=== PATIENT | female | born 1930 | race Caucasian/White ===

== ENCOUNTER 2016-09-27 12:16 | Inpatient (IN) | payer MEDICARE, OTHER ==
[~2016-09-27 12:16] MED LIST: ADVAIR 25028 BLISTE1 INH; ALBUTEROL17 GM INH; AMOXICILLIN875 MG PO; ANTIVERT25 MG PO; ASPIRIN EC81 MG PO; ASPIRIN81 MG PO; AUGMENTIN 875-1 EAC2 PO; AVELOX400 MG; BABY ASPIRIN81 MG; CARBIDOPA-LE1 TAB.SA; CARBIDOPA-LEVO E1 EA PO; CARBIDOPA-LEVO1 EAC9 PO; CARVEDILOL25 M1 PO; CLARITIN10 M8 PO; COLACE100 M1 PO; COREG12.5 MG; COREG25 MG PO; CPAP; CYANOCOBAL1000 MCG/3 SC; DOC-Q-LACE100 M1 PO; FAMOTIDINE40 M3 PO; IPRAT-ALBUT 0.5-3 ML EZPAP; IRON325 M1 PO; ISOSORBIDE MONO30 M4 PO; K-DUR10 MEQ PO; K-DUR20 MEQ PO; KEFLEX500 MG PO; LASIX20 M1 PO; LASIX20 MG PO; LEVAQUIN250 MG PO; LIPITOR40 M1 PO; LIPITOR80 M1 PO; LIPITOR80 MG; LIPITOR80 MG PO; LISINOPRIL10 M1 PO; LISINOPRIL10 MG; LISINOPRIL10 MG PO; LOVENOX30 MG/0.1 SC; MEDROL4 M2; MIRALAX17 G2 PO; MIRAPEX0.25 M1 PO; MUCINEX600 M1 PO; NITROSTAT0.4 MG/TAB SL; NITROTAB0.4 MG SL; NORCO 5-325 TA1 EACH PO; NORVASC10 M2 PO; PEPCID40 MG; PEPCID40 MG PO; POTASSIUM CHLO10 ME2 PO; PRAMIPEXOLE D0.25 M1 PO; PREDNISONE1 MG PO; PREDNISONE10 M1; PREDNISONE20 MG; PROVENTIL HFA6.7 G1 INH; RANEXA500 M1 PO; RANEXA500 MG PO; RESCUE INHALER INH; TRAZODONE HCL50 M1 PO; TRAZODONE50 MG; TRAZODONE50 MG PO; TUDORZA PRESS400 MC1 INH; TYLENOL325 M2 PO; ULTRACET TABLET1 TAB PO; VESICARE5 M1 PO; VITAMIN B SC; XOPENEX HFA15 G1 INH; XOPENEX HFA15 GM; ZITHROMAX TRI-500 M1; ZITHROMAX250 MG PO; ZOFRAN ODT4 MG/UDTAB PO; ZOFRAN4 M2 PO; ZOLOFT50 M1 PO; ZOLOFT50 MG; ZOLOFT50 MG PO; [UNRECOGNIZED DRUG - REMARK]
[2016-09-27 12:18] LABS: URINE APPEARANCE CLEAR; URINE BILIRUBIN NEGATIVE (NEG); URINE BLOOD NEGATIVE (NEG); URINE COLOR YELLOW; URINE GLUCOSE (UA) NEGATIVE (NEG); URINE KETONE SMALL (NEG); URINE LEUKOCYTE ESTERASE POSITIVE (NEG); URINE NITRITE NEGATIVE (NEG); URINE PROTEIN MODERATE (NEG); URINE SPECIFIC GRAVITY 1.015 (1.003-1.030)
[2016-09-27 12:29] LABS: URINE EPITHELIAL CELLS 0-2 /[HPF] (0-10); URINE MUCUS 1+; URINE RBC 0 /[HPF] (0-5)
[2016-09-27 12:33] LABS: EOS % 2.4 % (0-7); EOSINOPHIL ABSOLUTE COUNT 0.1 tho/cmm (0.0-0.7); HCT-HEMATOCRIT 37.3 % (34.0-49.0); HGB-HEMOGLOBIN 11.3 gm/dl (12.0-15.5); LYMPH % 20.3 % (20-45); LYMPH ABSOLUTE COUNT 1.2 tho/cmm (0.8-4.5); MCH (MEAN CORPUSCULAR HGB) 27.7 pg (28.0-32.0); MCHC MEAN CORPUSCULAR HGB CONC 30.3 % (32.0-36.0); MCV (MEAN CELL VOLUME) 91.4 fl (82.0-96.0); MEAN PLATELET VOLUME 11.5 cmc (9.4-12.4); MONO % 7.1 % (0-12); MONOCYTE ABSOLUTE COUNT 0.4 tho/cmm (0.0-1.2); NEUTROPHIL ABSOLUTE COUNT 4.1 tho/cmm (1.6-8.0); NEUTROPHIL-AUTOMATED 4.1 tho/cmm (1.6-8.0); NEUTROPHILS % 70.2 % (40-80); PLATELET COUNT 183 tho/cmm (150-450); RED BLOOD COUNT 4.08 mil/cmm (4.00-5.20); WHITE BLOOD COUNT 5.8 tho/cmm (4.0-10.0)
[2016-09-27 12:42] LABS: ALB/GLOB RATIO 0.8 (0.8-2.0); ALBUMIN 3.6 g/dl (3.5-5.0); ALKALINE PHOSPHATASE 140 U/L (33-138); ANION GAP 12 mmol/L (0-20); AST/SGOT 14 U/L (10-40); BILIRUBIN,TOTAL 0.4 mg/dl (0-1.5); BLOOD UREA NITROGEN 22 mg/dl (6-24); CALCIUM 9.2 mg/dl (8.5-10.5); CARBON DIOXIDE-VENOUS 26 mmol/L (22-32); CHLORIDE 108 mmol/l (96-110); CREATININE 1.58 mg/dl (0.50-1.10); GLUCOSE 98 mg/dL (70-110); LIPASE 243 U/L (73-393); POTASSIUM 4.8 mmol/L (3.7-5.1); SODIUM 141 mmol/L (135-145); eGFR VALUE FOR BLACK 34 mL/Min
[2016-09-27 12:46] LABS: ALT/SGPT <10 U/L (12-78)
[2016-09-28 06:32] LABS: EOS % 0.3 % (0-7); HCT-HEMATOCRIT 32.1 % (34.0-49.0); HGB-HEMOGLOBIN 9.6 gm/dl (12.0-15.5); IMMATURE GRANULOCYTES ABSOLUTE 0.01 tho/cmm (0-0.03); IMMATURE GRANULOCYTES PERCENT 0.3 % (0-0.3); LYMPH % 16.9 % (20-45); LYMPH ABSOLUTE COUNT 0.6 tho/cmm (0.8-4.5); MCH (MEAN CORPUSCULAR HGB) 27.4 pg (28.0-32.0); MCHC MEAN CORPUSCULAR HGB CONC 29.9 % (32.0-36.0); MCV (MEAN CELL VOLUME) 91.7 fl (82.0-96.0); MONO % 1.1 % (0-12); NEUTROPHIL ABSOLUTE COUNT 3.1 tho/cmm (1.6-8.0); NEUTROPHIL-AUTOMATED 3.1 tho/cmm (1.6-8.0); NEUTROPHILS % 81.4 % (40-80); PLATELET COUNT 146 tho/cmm (150-450); RED CELL DISTRIBUTION WIDTH 15.2 % (12.4-16.4); WHITE BLOOD COUNT 3.8 tho/cmm (4.0-10.0)
[2016-09-28 06:59] LABS: ANION GAP 11 mmol/L (0-20); BLOOD UREA NITROGEN 23 mg/dl (6-24); CALCIUM 8.7 mg/dl (8.5-10.5); CARBON DIOXIDE-VENOUS 27 mmol/L (22-32); CHLORIDE 110 mmol/l (96-110); CREATININE 1.54 mg/dl (0.50-1.10); POTASSIUM 5.3 mmol/L (3.7-5.1); SODIUM 143 mmol/L (135-145); eGFR VALUE FOR BLACK 36 mL/Min
[2016-09-28 07:12] LABS: GLUCOSE 164 mg/dL (70-110)
[2016-09-29 06:28] LABS: ANION GAP 13 mmol/L (0-20); BLOOD UREA NITROGEN 34 mg/dl (6-24); CALCIUM 8.3 mg/dl (8.5-10.5); CARBON DIOXIDE-VENOUS 25 mmol/L (22-32); CHLORIDE 109 mmol/l (96-110); CREATININE 1.63 mg/dl (0.50-1.10); GLUCOSE 97 mg/dL (70-110); POTASSIUM 5.1 mmol/L (3.7-5.1); SODIUM 142 mmol/L (135-145); eGFR VALUE FOR BLACK 33 mL/Min
[2016-09-29 06:34] LABS: HCT-HEMATOCRIT 27.6 % (34.0-49.0); HGB-HEMOGLOBIN 8.5 gm/dl (12.0-15.5); IMMATURE GRANULOCYTES ABSOLUTE 0.03 tho/cmm (0-0.03); IMMATURE GRANULOCYTES PERCENT 0.5 % (0-0.3); LYMPH ABSOLUTE COUNT 1.1 tho/cmm (0.8-4.5); MCH (MEAN CORPUSCULAR HGB) 27.8 pg (28.0-32.0); MCHC MEAN CORPUSCULAR HGB CONC 30.8 % (32.0-36.0); MCV (MEAN CELL VOLUME) 90.2 fl (82.0-96.0); MEAN PLATELET VOLUME 10.9 cmc (9.4-12.4); MONO % 6.7 % (0-12); MONOCYTE ABSOLUTE COUNT 0.4 tho/cmm (0.0-1.2); NEUTROPHIL ABSOLUTE COUNT 4.2 tho/cmm (1.6-8.0); NEUTROPHIL-AUTOMATED 4.2 tho/cmm (1.6-8.0); NEUTROPHILS % 73.8 % (40-80); PLATELET COUNT 148 tho/cmm (150-450); RED BLOOD COUNT 3.06 mil/cmm (4.00-5.20); RED CELL DISTRIBUTION WIDTH 15.2 % (12.4-16.4); WHITE BLOOD COUNT 5.7 tho/cmm (4.0-10.0)
[2016-09-30 06:11] LABS: EOS % 0.2 % (0-7); HCT-HEMATOCRIT 28.4 % (34.0-49.0); HGB-HEMOGLOBIN 8.7 gm/dl (12.0-15.5); IMMATURE GRANULOCYTES ABSOLUTE 0.05 tho/cmm (0-0.03); IMMATURE GRANULOCYTES PERCENT 0.9 % (0-0.3); LYMPH % 25.1 % (20-45); LYMPH ABSOLUTE COUNT 1.4 tho/cmm (0.8-4.5); MCH (MEAN CORPUSCULAR HGB) 27.9 pg (28.0-32.0); MCHC MEAN CORPUSCULAR HGB CONC 30.6 % (32.0-36.0); MONO % 7.9 % (0-12); MONOCYTE ABSOLUTE COUNT 0.4 tho/cmm (0.0-1.2); NEUTROPHIL ABSOLUTE COUNT 3.7 tho/cmm (1.6-8.0); NEUTROPHIL-AUTOMATED 3.7 tho/cmm (1.6-8.0); NEUTROPHILS % 65.9 % (40-80); PLATELET COUNT 163 tho/cmm (150-450); RED BLOOD COUNT 3.12 mil/cmm (4.00-5.20); RED CELL DISTRIBUTION WIDTH 15.7 % (12.4-16.4); WHITE BLOOD COUNT 5.5 tho/cmm (4.0-10.0)
[2016-09-30 06:48] LABS: ANION GAP 13 mmol/L (0-20); BLOOD UREA NITROGEN 25 mg/dl (6-24); CALCIUM 8.1 mg/dl (8.5-10.5); CARBON DIOXIDE-VENOUS 26 mmol/L (22-32); CHLORIDE 110 mmol/l (96-110); CREATININE 1.41 mg/dl (0.50-1.10); GLUCOSE 80 mg/dL (70-110); POTASSIUM 4.6 mmol/L (3.7-5.1); SODIUM 144 mmol/L (135-145); eGFR VALUE FOR BLACK 40 mL/Min
[2016-10-01] MEDS ORDERED: FEOSOL325 M1 PO (11:40)
[2016-10-01] MEDS ORDERED: ZOLOFT50 M1 PO (11:41)
[2016-10-01] MEDS ORDERED: PROTONIX40 M2 PO (11:42)
[2017-02-12] MEDS ORDERED: PEPCID40 M1 PO (14:53)
[2017-02-12] MEDS ORDERED: BACITRACIN28.4 G2 TP (15:07)
[2017-02-18] MEDS ORDERED: KEFLEX500 M4 PO (09:19)
[2017-02-18] MEDS ORDERED: TYLENOL325 M2 PO (09:28)
[2017-02-18] MEDS ORDERED: MILK OF MAGNESIA PO (09:29)
== END 2016-10-01 12:35 | disposition home health service (06) | DRG 392 ==
LOC: EDMED 12:16 → EMR2 14:20 → 5WF 16:20
PROVIDERS: Emergency Medicine; ADMIT Family Medicine
PROC: 0DJ08ZZ Inspection of Upper Intestinal Tract, Via Natural or Artificial Opening Endoscopic (ICD-10-PCS; principal; 2016-09-29)
DX: K44.9 Diaphragmatic hernia without obstruction or gangrene (principal); D61.818 Other pancytopenia; E87.5 Hyperkalemia; G20 Parkinson's disease; N18.3 Chronic kidney disease, stage 3 (moderate); J44.9 Chronic obstructive pulmonary disease, unspecified; G47.33 Obstructive sleep apnea (adult) (pediatric); K22.4 Dyskinesia of esophagus; F32.9 Major depressive disorder, single episode, unspecified; G31.84 Mild cognitive impairment of uncertain or unknown etiology; D63.1 Anemia in chronic kidney disease; I95.1 Orthostatic hypotension; I25.10 Atherosclerotic heart disease of native coronary artery without angina pectoris; I25.2 Old myocardial infarction; M19.90 Unspecified osteoarthritis, unspecified site; F41.9 Anxiety disorder, unspecified; K21.9 Gastro-esophageal reflux disease without esophagitis; N20.0 Calculus of kidney; Z85.828 Personal history of other malignant neoplasm of skin; Z95.1 Presence of aortocoronary bypass graft
CPT/HCPCS: A9541; C1751; G8987-GO-CJ; G8988-GO-CI; J1650; J2405; J7030; J7512

== ENCOUNTER 2016-12-24 21:51 | Inpatient (IN) | payer MEDICARE, OTHER ==
[~2016-12-24 21:51] MED LIST changes: +FEOSOL325 M1 PO; +PROTONIX40 M2 PO
[2016-12-24] MEDS ORDERED: PRINIVIL10 M1 PO (22:35)
[2016-12-24] MEDS ORDERED: TRAZODONE HCL50 M1 PO (22:36)
[2016-12-24 23:29] LABS: BASO % 0.2 % (0-2); EOS % 1.5 % (0-7); EOSINOPHIL ABSOLUTE COUNT 0.1 tho/cmm (0.0-0.7); HCT-HEMATOCRIT 30.2 % (34.0-49.0); HGB-HEMOGLOBIN 9.1 gm/dl (12.0-15.5); IMMATURE GRANULOCYTES ABSOLUTE 0.02 tho/cmm (0-0.03); IMMATURE GRANULOCYTES PERCENT 0.4 % (0-0.3); LYMPH % 19.9 % (20-45); LYMPH ABSOLUTE COUNT 1.1 tho/cmm (0.8-4.5); MCH (MEAN CORPUSCULAR HGB) 26.1 pg (28.0-32.0); MCHC MEAN CORPUSCULAR HGB CONC 30.1 % (32.0-36.0); MCV (MEAN CELL VOLUME) 86.8 fl (82.0-96.0); MEAN PLATELET VOLUME 9.9 cmc (9.4-12.4); MONO % 7.2 % (0-12); MONOCYTE ABSOLUTE COUNT 0.4 tho/cmm (0.0-1.2); NEUTROPHIL ABSOLUTE COUNT 3.9 tho/cmm (1.6-8.0); NEUTROPHIL-AUTOMATED 3.9 tho/cmm (1.6-8.0); NEUTROPHILS % 70.8 % (40-80); PLATELET COUNT 153 tho/cmm (150-450); RED BLOOD COUNT 3.48 mil/cmm (4.00-5.20); RED CELL DISTRIBUTION WIDTH 15.7 % (12.4-16.4); WHITE BLOOD COUNT 5.4 tho/cmm (4.0-10.0)
[2016-12-24 23:45] LABS: ALB/GLOB RATIO 0.8 (0.8-2.0); ALKALINE PHOSPHATASE 152 U/L (33-138); ALT/SGPT 16 U/L (12-78); ANION GAP 12 mmol/L (0-20); AST/SGOT 14 U/L (10-40); BILIRUBIN,TOTAL 0.4 mg/dl (0-1.5); BLOOD UREA NITROGEN 36 mg/dl (6-24); CALCIUM 8.3 mg/dl (8.5-10.5); CARBON DIOXIDE-VENOUS 29 mmol/L (22-32); CHLORIDE 107 mmol/l (96-110); CREATININE 1.94 mg/dl (0.50-1.10); GLUCOSE 114 mg/dL (70-110); POTASSIUM 4.6 mmol/L (3.7-5.1); SODIUM 143 mmol/L (135-145); eGFR VALUE FOR BLACK 27 mL/Min
[2016-12-24 23:53] LABS: URINE BILIRUBIN NEGATIVE (NEG); URINE BLOOD NEGATIVE (NEG); URINE GLUCOSE (UA) NEGATIVE (NEG); URINE KETONE NEGATIVE (NEG); URINE LEUKOCYTE ESTERASE NEGATIVE (NEG); URINE NITRITE NEGATIVE (NEG); URINE PROTEIN SMALL (NEG); URINE SPECIFIC GRAVITY 1.015 (1.003-1.030)
[2016-12-24 23:54] LABS: URINE APPEARANCE CLEAR; URINE COLOR YELLOW
[2016-12-24 23:56] LABS: URINE EPITHELIAL CELLS 0-1 /[HPF] (0-10); URINE MUCUS 2+; URINE RBC 0 /[HPF] (0-5); URINE WBC 0-2 /[HPF] (0-5)
[2016-12-25 06:08] LABS: ANION GAP 11 mmol/L (0-20); BLOOD UREA NITROGEN 37 mg/dl (6-24); CALCIUM 8.8 mg/dl (8.5-10.5); CARBON DIOXIDE-VENOUS 32 mmol/L (22-32); CHLORIDE 108 mmol/l (96-110); CREATININE 1.75 mg/dl (0.50-1.10); GLUCOSE 100 mg/dL (70-110); POTASSIUM 4.3 mmol/L (3.7-5.1); SODIUM 147 mmol/L (135-145); eGFR VALUE FOR BLACK 30 mL/Min
[2016-12-26 05:52] LABS: EOS % 1.7 % (0-7); EOSINOPHIL ABSOLUTE COUNT 0.1 tho/cmm (0.0-0.7); HCT-HEMATOCRIT 30.5 % (34.0-49.0); HGB-HEMOGLOBIN 9.2 gm/dl (12.0-15.5); IMMATURE GRANULOCYTES ABSOLUTE 0.02 tho/cmm (0-0.03); IMMATURE GRANULOCYTES PERCENT 0.4 % (0-0.3); LYMPH % 26.1 % (20-45); LYMPH ABSOLUTE COUNT 1.2 tho/cmm (0.8-4.5); MCH (MEAN CORPUSCULAR HGB) 25.9 pg (28.0-32.0); MCHC MEAN CORPUSCULAR HGB CONC 30.2 % (32.0-36.0); MCV (MEAN CELL VOLUME) 85.9 fl (82.0-96.0); MEAN PLATELET VOLUME 10.8 cmc (9.4-12.4); MONO % 5.8 % (0-12); MONOCYTE ABSOLUTE COUNT 0.3 tho/cmm (0.0-1.2); NEUTROPHIL ABSOLUTE COUNT 3.1 tho/cmm (1.6-8.0); NEUTROPHIL-AUTOMATED 3.1 tho/cmm (1.6-8.0); PLATELET COUNT 158 tho/cmm (150-450); RED BLOOD COUNT 3.55 mil/cmm (4.00-5.20); RED CELL DISTRIBUTION WIDTH 15.8 % (12.4-16.4); WHITE BLOOD COUNT 4.6 tho/cmm (4.0-10.0)
[2016-12-26 06:11] LABS: ANION GAP 9 mmol/L (0-20); BLOOD UREA NITROGEN 37 mg/dl (6-24); CALCIUM 8.3 mg/dl (8.5-10.5); CARBON DIOXIDE-VENOUS 33 mmol/L (22-32); CHLORIDE 103 mmol/l (96-110); CREATININE 1.71 mg/dl (0.50-1.10); GLUCOSE 87 mg/dL (70-110); MAGNESIUM 1.8 mg/dl (1.8-2.6); SODIUM 141 mmol/L (135-145); eGFR VALUE FOR BLACK 31 mL/Min
[2016-12-27 04:55] LABS: PLATELET COUNT 146 tho/cmm (150-450)
[2016-12-27 05:03] LABS: ANION GAP 10 mmol/L (0-20); BLOOD UREA NITROGEN 38 mg/dl (6-24); CARBON DIOXIDE-VENOUS 32 mmol/L (22-32); CHLORIDE 102 mmol/l (96-110); CREATININE 1.83 mg/dl (0.50-1.10); GLUCOSE 90 mg/dL (70-110); MAGNESIUM 1.8 mg/dl (1.8-2.6); POTASSIUM 3.9 mmol/L (3.7-5.1); SODIUM 140 mmol/L (135-145); eGFR VALUE FOR BLACK 29 mL/Min
[2016-12-28 05:42] LABS: EOS % 2.2 % (0-7); EOSINOPHIL ABSOLUTE COUNT 0.1 tho/cmm (0.0-0.7); HCT-HEMATOCRIT 30.3 % (34.0-49.0); HGB-HEMOGLOBIN 9.3 gm/dl (12.0-15.5); IMMATURE GRANULOCYTES ABSOLUTE 0.02 tho/cmm (0-0.03); IMMATURE GRANULOCYTES PERCENT 0.5 % (0-0.3); LYMPH % 27.8 % (20-45); LYMPH ABSOLUTE COUNT 1.2 tho/cmm (0.8-4.5); MCH (MEAN CORPUSCULAR HGB) 26.3 pg (28.0-32.0); MCHC MEAN CORPUSCULAR HGB CONC 30.7 % (32.0-36.0); MCV (MEAN CELL VOLUME) 85.6 fl (82.0-96.0); MEAN PLATELET VOLUME 9.8 cmc (9.4-12.4); MONOCYTE ABSOLUTE COUNT 0.3 tho/cmm (0.0-1.2); NEUTROPHIL ABSOLUTE COUNT 2.6 tho/cmm (1.6-8.0); NEUTROPHIL-AUTOMATED 2.6 tho/cmm (1.6-8.0); NEUTROPHILS % 62.5 % (40-80); PLATELET COUNT 152 tho/cmm (150-450); RED BLOOD COUNT 3.54 mil/cmm (4.00-5.20); RED CELL DISTRIBUTION WIDTH 15.5 % (12.4-16.4); WHITE BLOOD COUNT 4.1 tho/cmm (4.0-10.0)
[2016-12-28 05:59] LABS: ANION GAP 10 mmol/L (0-20); BLOOD UREA NITROGEN 41 mg/dl (6-24); CALCIUM 8.2 mg/dl (8.5-10.5); CARBON DIOXIDE-VENOUS 32 mmol/L (22-32); CHLORIDE 103 mmol/l (96-110); CREATININE 1.95 mg/dl (0.50-1.10); GLUCOSE 85 mg/dL (70-110); MAGNESIUM 1.8 mg/dl (1.8-2.6); POTASSIUM 3.9 mmol/L (3.7-5.1); SODIUM 141 mmol/L (135-145); eGFR VALUE FOR BLACK 27 mL/Min
[2016-12-29 06:18] LABS: BASO % 0.3 % (0-2); EOS % 2.3 % (0-7); EOSINOPHIL ABSOLUTE COUNT 0.1 tho/cmm (0.0-0.7); HCT-HEMATOCRIT 31.6 % (34.0-49.0); HGB-HEMOGLOBIN 9.5 gm/dl (12.0-15.5); IMMATURE GRANULOCYTES ABSOLUTE 0.01 tho/cmm (0-0.03); IMMATURE GRANULOCYTES PERCENT 0.3 % (0-0.3); LYMPH % 25.8 % (20-45); MCH (MEAN CORPUSCULAR HGB) 26.1 pg (28.0-32.0); MCHC MEAN CORPUSCULAR HGB CONC 30.1 % (32.0-36.0); MCV (MEAN CELL VOLUME) 86.8 fl (82.0-96.0); MEAN PLATELET VOLUME 10.3 cmc (9.4-12.4); MONO % 7.6 % (0-12); MONOCYTE ABSOLUTE COUNT 0.3 tho/cmm (0.0-1.2); NEUTROPHIL ABSOLUTE COUNT 2.5 tho/cmm (1.6-8.0); NEUTROPHIL-AUTOMATED 2.5 tho/cmm (1.6-8.0); NEUTROPHILS % 63.7 % (40-80); PLATELET COUNT 154 tho/cmm (150-450); RED BLOOD COUNT 3.64 mil/cmm (4.00-5.20); RED CELL DISTRIBUTION WIDTH 15.8 % (12.4-16.4)
[2016-12-29 06:29] LABS: ANION GAP 9 mmol/L (0-20); BLOOD UREA NITROGEN 39 mg/dl (6-24); CALCIUM 8.8 mg/dl (8.5-10.5); CARBON DIOXIDE-VENOUS 34 mmol/L (22-32); CHLORIDE 103 mmol/l (96-110); CREATININE 1.76 mg/dl (0.50-1.10); GLUCOSE 86 mg/dL (70-110); POTASSIUM 4.4 mmol/L (3.7-5.1); SODIUM 142 mmol/L (135-145); eGFR VALUE FOR BLACK 30 mL/Min
[2016-12-30 05:02] LABS: ANION GAP 9 mmol/L (0-20); BLOOD UREA NITROGEN 39 mg/dl (6-24); CALCIUM 8.6 mg/dl (8.5-10.5); CARBON DIOXIDE-VENOUS 32 mmol/L (22-32); CHLORIDE 102 mmol/l (96-110); CREATININE 1.75 mg/dl (0.50-1.10); GLUCOSE 102 mg/dL (70-110); POTASSIUM 4.4 mmol/L (3.7-5.1); SODIUM 139 mmol/L (135-145); eGFR VALUE FOR BLACK 30 mL/Min
[2016-12-30] MEDS ORDERED: LIDODERM1 EACH TP (14:10)
[2016-12-30] MEDS ORDERED: SPIRIVA18 MC1 INH (14:11)
[2016-12-30] MEDS ORDERED: METOPROLOL SUCC25 M1 PO (14:13)
[2016-12-30] MEDS ORDERED: NEURONTIN300 M1 PO (14:15)
[2016-12-30] MEDS ORDERED: TYLENOL EXTRA500 M1 PO (14:17)
[2017-02-12] MEDS ORDERED: PEPCID40 M1 PO (14:53)
[2017-02-12] MEDS ORDERED: BACITRACIN28.4 G2 TP (15:07)
[2017-02-18] MEDS ORDERED: KEFLEX500 M4 PO (09:19)
[2017-02-18] MEDS ORDERED: TYLENOL325 M2 PO (09:28)
[2017-02-18] MEDS ORDERED: MILK OF MAGNESIA PO (09:29)
== END 2016-12-30 15:15 | disposition home health service (06) | DRG 291 ==
LOC: EDMED 21:51 → EMR2 12-25 02:40 → PCUB 12-25 03:30
PROVIDERS: Emergency Medicine; Internal Medicine; Internal Medicine Cardiovascular Disease; ADMIT Family Medicine
PROC: 5A09357 Assistance with Respiratory Ventilation, Less than 24 Consecutive Hours, Continuous Positive Airway Pressure (ICD-10-PCS; principal; 2016-12-25)
DX: I13.0 Hypertensive heart and chronic kidney disease with heart failure and stage 1 through stage 4 chronic kidney disease, or unspecified chronic kidney disease (principal); I50.33 Acute on chronic diastolic (congestive) heart failure; N17.9 Acute kidney failure, unspecified; G20 Parkinson's disease; G62.9 Polyneuropathy, unspecified; N18.3 Chronic kidney disease, stage 3 (moderate); D63.1 Anemia in chronic kidney disease; I95.1 Orthostatic hypotension; I25.10 Atherosclerotic heart disease of native coronary artery without angina pectoris; I25.2 Old myocardial infarction; Z95.1 Presence of aortocoronary bypass graft; G47.33 Obstructive sleep apnea (adult) (pediatric); K21.9 Gastro-esophageal reflux disease without esophagitis; M19.90 Unspecified osteoarthritis, unspecified site; F32.9 Major depressive disorder, single episode, unspecified; F41.9 Anxiety disorder, unspecified; Z85.828 Personal history of other malignant neoplasm of skin; N20.0 Calculus of kidney; K44.9 Diaphragmatic hernia without obstruction or gangrene; Z91.19 Patient's noncompliance with other medical treatment and regimen; Z88.8 Allergy status to other drugs, medicaments and biological substances; Z91.041 Radiographic dye allergy status; R73.9 Hyperglycemia, unspecified; E78.5 Hyperlipidemia, unspecified; Z79.82 Long term (current) use of aspirin; Z79.02 Long term (current) use of antithrombotics/antiplatelets; Z96.653 Presence of artificial knee joint, bilateral; G40.909 Epilepsy, unspecified, not intractable, without status epilepticus; Z87.11 Personal history of peptic ulcer disease; R10.9 Unspecified abdominal pain; I07.1 Rheumatic tricuspid insufficiency
CPT/HCPCS: A9500; C8929; J0280; J1650; J1940; J2785; J3010

== ENCOUNTER 2017-01-01 11:12 | Emergency (ER) | payer MEDICARE, OTHER ==
[~2017-01-01 11:12] MED LIST changes: +LIDODERM1 EACH TP; +METOPROLOL SUCC25 M1 PO; +NEURONTIN300 M1 PO; +PRINIVIL10 M1 PO; +SPIRIVA18 MC1 INH; +TYLENOL EXTRA500 M1 PO
[2017-01-01 12:29] LABS: EOS % 1.9 % (0-7); EOSINOPHIL ABSOLUTE COUNT 0.1 tho/cmm (0.0-0.7); HCT-HEMATOCRIT 32.5 % (34.0-49.0); IMMATURE GRANULOCYTES ABSOLUTE 0.02 tho/cmm (0-0.03); IMMATURE GRANULOCYTES PERCENT 0.4 % (0-0.3); LYMPH % 17.5 % (20-45); LYMPH ABSOLUTE COUNT 0.9 tho/cmm (0.8-4.5); MCH (MEAN CORPUSCULAR HGB) 26.5 pg (28.0-32.0); MCHC MEAN CORPUSCULAR HGB CONC 30.8 % (32.0-36.0); MEAN PLATELET VOLUME 10.8 cmc (9.4-12.4); MONO % 5.7 % (0-12); MONOCYTE ABSOLUTE COUNT 0.3 tho/cmm (0.0-1.2); NEUTROPHIL ABSOLUTE COUNT 3.9 tho/cmm (1.6-8.0); NEUTROPHIL-AUTOMATED 3.9 tho/cmm (1.6-8.0); NEUTROPHILS % 74.5 % (40-80); PLATELET COUNT 159 tho/cmm (150-450); RED BLOOD COUNT 3.78 mil/cmm (4.00-5.20); RED CELL DISTRIBUTION WIDTH 15.6 % (12.4-16.4); WHITE BLOOD COUNT 5.3 tho/cmm (4.0-10.0)
[2017-01-01 12:38] LABS: ANION GAP 9 mmol/L (0-20); BLOOD UREA NITROGEN 39 mg/dl (6-24); CALCIUM 9.1 mg/dl (8.5-10.5); CARBON DIOXIDE-VENOUS 30 mmol/L (22-32); CHLORIDE 107 mmol/l (96-110); CREATININE 1.57 mg/dl (0.50-1.10); GLUCOSE 111 mg/dL (70-110); POTASSIUM 4.4 mmol/L (3.7-5.1); SODIUM 142 mmol/L (135-145); eGFR VALUE FOR BLACK 34 mL/Min
[2017-01-01 13:39] LABS: URINE BILIRUBIN NEGATIVE (NEG); URINE BLOOD NEGATIVE (NEG); URINE GLUCOSE (UA) NEGATIVE (NEG); URINE KETONE NEGATIVE (NEG); URINE LEUKOCYTE ESTERASE POSITIVE (NEG); URINE NITRITE NEGATIVE (NEG); URINE PROTEIN SMALL (NEG)
[2017-01-01 13:40] LABS: URINE APPEARANCE CLEAR; URINE COLOR YELLOW
[2017-01-01] MEDS ORDERED: MIRAPEX0.25 M1 PO (13:43)
[2017-01-01] MEDS ORDERED: OMEPRAZOLE20 M3 PO (13:44)
[2017-01-01] MEDS ORDERED: ISOSORBIDE MONO30 M4 PO (13:45)
[2017-01-01] MEDS ORDERED: NORVASC10 M2 PO (13:45)
[2017-01-01] MEDS ORDERED: RANEXA500 M1 PO (13:46)
[2017-01-01] MEDS ORDERED: COREG25 M1 PO (13:50)
[2017-01-01] MEDS ORDERED: PRINIVIL10 M1 PO (13:50)
[2017-01-01 13:51] LABS: URINE RBC 0-2 /[HPF] (0-5)
[2017-02-12] MEDS ORDERED: PEPCID40 M1 PO (14:53)
[2017-02-12] MEDS ORDERED: BACITRACIN28.4 G2 TP (15:07)
[2017-02-18] MEDS ORDERED: KEFLEX500 M4 PO (09:19)
[2017-02-18] MEDS ORDERED: TYLENOL325 M2 PO (09:28)
[2017-02-18] MEDS ORDERED: MILK OF MAGNESIA PO (09:29)
== END 2017-01-01 14:22 ==
LOC: EDMED 11:12
PROVIDERS: Physician Assistant
DX: S00.93XA Contusion of unspecified part of head, initial encounter (principal); S80.811A Abrasion, right lower leg, initial encounter; I25.10 Atherosclerotic heart disease of native coronary artery without angina pectoris; I25.2 Old myocardial infarction; I10 Essential (primary) hypertension; W01.198A Fall on same level from slipping, tripping and stumbling with subsequent striking against other object, initial encounter; Y92.009 Unspecified place in unspecified non-institutional (private) residence as the place of occurrence of the external cause